=== PATIENT | female | born 1950 | race Caucasian/White ===

== ENCOUNTER 2025-01-13 11:32 | Emergency (ER) | payer MEDICARE, MEDICAID ==
[~2025-01-13] VITALS: Ht 154.9 cm; Wt 38.8 kg
[~2025-01-13 11:32] MED LIST: LACT1CAP26 PO; TRAM50TA2 PO; TRAZ-251 PO
[2025-01-13 11:51] VITALS: BP 168/81; PULSE 78; O2SAT 95
[2025-01-13 14:33] VITALS: RESP 16
[2025-01-13] MEDS: ketorolac trometh 30MG/ML vial 30 MG/ML VIAL IM STA (14:33)
--- NOTE | 2025-01-13 14:50 | Physician Documentation ---
History of Present Illness ~ Chief Complaint: Headache Stated Complaint: FOOT WOUND Time Seen by MD: 13:44 Primary Medical Doctor: [facility] HPI Patient is seen today with complaints of elevated blood pressure and headache. Patient states her headache largely stents from her neck pain which she states is likely causing her elevated blood pressure. Patient denies previously being treated for elevated blood pressure. She denies any chest pain or shortness of breath or abdominal pain or fever or chills or nausea, vomiting, diarrhea. She has no other concern or complaint at this time. Medication Reconciliation Allergies: Coded Allergies: No Known Allergies (Unverified , 01/13/25) Scheduled Lactobacillus Rhamnosus (Culturelle), 1 CAP PO DAILY Scheduled PRN Acetaminophen (Tylenol 8 Hour), 1 TAB PO TID PRN PRN for abdominal cramps Tramadol Hcl (Tramadol Hcl), 1 TAB PO TID PRN for pain, (Reported) Trazodone HCl (Trazodone HCl), 1 TAB PO HS PRN for sleep, (Reported) Past Medical History Past Medical History: COPD, Emphysema, Hepatitis C, *MUSCULOSKELETAL*, Osteoporosis, Rheumatoid Arthritis, Anxiety Past Surgical History: no surgical history Drug Use: marijuana, methamphetamine Lives with: Family Lives In: Home Occupation: retired Review of Systems Constitutional: Denies: chills, fever, weakness Eyes: Denies: pain, blurred vision ENT: Denies: ear pain, nose pain, throat pain, mouth pain Respiratory: Denies: cough, shortness of breath Cardiovascular: Denies: chest pain, palpitations Gastrointestinal: Denies: abdominal pain, nausea, vomiting Genitourinary: Denies: burning, dysuria Female Genitalia: Denies: vaginal discharge, pelvic pain Neurological: Denies: headache, dizziness Musculoskeletal: Denies: pain, swelling Integumentary: Denies: rash, lesions Allergic/Immunologic: Denies: hives, itching Hematologic/Lymphatic: Denies: no symptoms reported Psychiatric: Denies: depression, anxiety Physical Exam Vital Signs: Temperature: 96.9, Source: Temporal, Heart Rate: 78, Respiratory Rate: 16, BP: 168/81, Pulse Oximetry: 95, Weight: 38.800 Oxygen Flow Rate: 0 Physical Exam General: Awake and Alert, no acute distress. HEENT: Conjunctiva pink, Sclera clear, Mucus Membranes moist. Neck: Supple without masses and tenderness. Resp: Unlabored. Lungs clear to auscultation bilaterally. Heart: Regular Rate and rhythm, normal S1 and S2 without murmur, rub or gallop. Musculoskeletal: Patient on exam does have decreased range of motion of the cervical spine in all planes of motion. Patient is neurovascularly intact distally bilateral upper and lower extremities. Motor function intact distally. Extremities: No cyanosis,clubbing or edema. Skin: Warm and Dry. Progress Results/Orders Results/Orders Completed Orders - TIARA EPSTEIN Ketorolac Trometh 30mg/Ml Vial (Toradol (01/13/25 14:11) Clonidine Tablet (Catapres Tablet) (01/13/25 14:45) Medications Received in ER Medications (Trade) Dose Ordered Sig/Cristobal Route PRN Reason Start Time Stop Time Status Last Admin Dose Admin (Toradol inj. 30mg/ml) 15 mg ONCE STAT IM 01/13/25 14:11 01/13/25 14:12 DC 01/13/25 14:33 15 MG Vital Signs 01/13/25 01/13/25 11:51 14:33 Temp 96.9 Pulse 78 Resp 16 16 B/P (MAP) 168/81 Pulse Ox 95 O2 Flow Rate 0 Medical Decision Making Findings Patient is seen today with complaints of elevated blood pressure and headache. Patient states her headache largely stents from her neck pain which she states is likely causing her elevated blood pressure. Patient denies previously being treated for elevated blood pressure. She denies any chest pain or shortness of breath or abdominal pain or fever or chills or nausea, vomiting, diarrhea. She has no other concern or complaint at this time. Patient was given Toradol 15 mg IM and clonidine 0.1 mg by mouth. Patient will follow up with primary care for further eval and treatment of blood pressure hypertension and neck pain. Patient will take Tylenol ibuprofen at home for symptomatic relief. Return to ED with any worsening, concerning or changing symptoms. Departure Disposition: HOME / SELF CARE / HOMELESS Impression: Primary Impression: Headache Qualified Codes: R51.9 - Headache, unspecified Additional Impressions: Neck pain HTN (hypertension) Qualified Codes: I10 - Essential (primary) hypertension Condition: Improved Discharge Instructions: Headache Additional Instructions: Patient was given Toradol 15 mg IM and clonidine 0.1 mg by mouth. Patient will follow up with primary care for further eval and treatment of blood pressure hypertension and neck pain. Patient will take Tylenol ibuprofen at home for symptomatic relief. Return to ED with any worsening, concerning or changing symptoms. Referrals: NO PRIMARY CARE PROVIDER (PCP) Prescriptions Methocarbamol (Methocarbamol) 750 Mg Tablet 1 TAB PO Q8H for 10 Days, #30 TAB 0 Refills Prov: TIARA EPSTEIN 01/13/25 Acetaminophen (Tylenol 8 Hour) 650 Mg Tablet.er 1 TAB PO TID PRN PRN for abdominal cramps for 10 Days, #30 TAB 0 Refills NEEDED FOR PAIN Prov: TIARA EPSTEIN 01/13/25 Signature Scribe Signature: No scribe Attestation: No scribe TIARA EPSTEIN Jan 13, 2025 14:50
[2025-01-13] MEDS ORDERED: ACET-3174 PO (14:52)
[2025-01-13] MEDS ORDERED: METH-798 PO (14:58)
[2025-01-13 16:03] VITALS: TEMP 96.9
== END 2025-01-13 16:06 | disposition home or self-care (01) ==
LOC: ER 11:33
DX: R51.9 Headache, unspecified (principal); M54.2 Cervicalgia; I10 Essential (primary) hypertension; J43.9 Emphysema, unspecified; M06.9 Rheumatoid arthritis, unspecified; M81.0 Age-related osteoporosis without current pathological fracture; F12.90 Cannabis use, unspecified, uncomplicated; F15.90 Other stimulant use, unspecified, uncomplicated
CPT/HCPCS: 96372; 99283; J1885